=== PATIENT | male | born 1940 | race Caucasian/White ===

== ENCOUNTER → 2018-01-30 | Outpatient (CLI) | payer OTHER, MEDICARE ==
[2015-10-18 11:50] VITALS: BP 169/82
[2018-01-30 16:34] LABS: BASOPHILS # (AUTO) 0.1 X10^3/uL (0.0-0.1); BASOPHILS % (AUTO) 1.2 % (0.2-1.0); EOSINOPHILS # (AUTO) 0.3 x10^3/uL (0.0-0.2); EOSINOPHILS % (AUTO) 4.3 % (0.9-2.9); HEMATOCRIT 45.5 % (42.0-54.0); HEMOGLOBIN 15.8 g/dL (13.5-18.0); LYMPHOCYTES # (AUTO) 1.5 X10^3/uL (1.3-2.9); LYMPHOCYTES % (AUTO) 21.9 % (21.0-51.0); MEAN CORPUSCULAR HEMOGLOBIN 31.4 pg (27.0-34.0); MEAN CORPUSCULAR HGB CONC 34.7 g/dL (33.0-35.0); MEAN CORPUSCULAR VOLUME 90.4 fL (80.0-100.0); MEAN PLATELET VOLUME 9.7 fL (7.4-11.0); MONOCYTES # (AUTO) 0.6 x10^3/uL (0.3-0.8); MONOCYTES % (AUTO) 9.1 % (0.0-13.0); NEUTROPHILS # (AUTO) 4.5 x10^3/uL (2.2-4.8); NEUTROPHILS % (AUTO) 63.5 % (42.0-75.0); PLATELET COUNT 126 X10^3/uL (150.0-450.0); RED BLOOD COUNT 5.03 X10^6/uL (4.7-6.0); RED CELL DISTRIBUTION WIDTH 13.2 % (11.6-16.5); WHITE BLOOD COUNT 7.1 X10^3/uL (3.6-10.0)
[2018-01-30 16:41] LABS: BILIRUBIN,DIRECT 0.3 mg/dL (0-0.2); TOTAL PROTEIN 7.1 g/dL (6.4-8.2)
== END ==
LOC: LAB 16:13
PROVIDERS: ATTEND Internal Medicine Gastroenterology
DX: R94.5 Abnormal results of liver function studies (principal)
CPT/HCPCS: 36415; 80076; 85025

== ENCOUNTER 2024-12-31 16:24 | Observation (INO) ==
--- NOTE | 2024-12-31 18:33 | DR.GENAD ---
HPI Time Seen Time Seen by Provider: 12/31/24 18:21 PCP Primary Care Physician: Татьяна Galo HPI Comment HPI Comment: Patient's states he had an exposure to COVID just over a week ago. Patient was asymptomatic until 2 days ago when he started having some runny nose, congestion and cough. Last night patient started getting a little disoriented in the evening which is abnormal for him but improved during the day today. Earlier today he started feeling a little more weak but no focal symptoms. Complaint/Symptoms Chief Complaint:: states she was exposed to covid ~ 9-10 days ago, with everyone in the choir testing positive. She states she recently had congestion and cough but tested negative but he developed a cough 2 days ago and was weak and dysoriented last PM. She reports he is oriented and normal now, but continues with cough and weakness COVID-19 Coronavirus risk:travel/contact w/high risk person: Yes Has patient experienced Coronavirus symptoms: Yes Coronavirus symptoms experienced: Coughing Source History Provided: Patient and Significant Other Mode of Arrival Mode of Arrival: Wheelchair Timing Onset of Chief Complaint: 12/29/24 PMH PMH Past Medical History: Yes Past Medical History: GERD Past Medical History Comment: pacemaker secondary Wiley, Parkinsons Past Surgical History: Yes Surgical History: Ortho Surgery and Tonsillectomy Past Surgical History Comment: right total knee, left shoulder, cornea implants Family History History of Family Medical Conditions: Yes Family Medical History: Coronary Artery Disease Social History Does patient currently use any type of tobacco product: No Have you used tobacco products in the last 12 months: No Type of Tobacco Use: None Does any household member use tobacco: No Alcohol Use: None Do you use any recreational Drugs:: No Lives With: Spouse Lives Where: Home Travel Risk Coronavirus risk:travel/contact w/high risk person: Yes Has patient experienced Coronavirus symptoms: Yes Coronavirus symptoms experienced: Coughing Infectious screening In the last 2 months have you had wt loss of >10#?: NO Have you had fever, night sweats or hemotysis?: No Have you traveled outside the country in the last 6 months?: No Isolation: Standard ROS Review of Systems Constitutional: See HPI and Weakness; negative Fever Eyes: No Symptoms Reported ENTM: No Symptoms Reported Respiratoy: See HPI and Non-Productive Cough; negative Wheezing Cardiovascular: No Symptoms Reported; negative Chest Pain or Syncope Gastrointestinal/Abdominal: No Symptoms Reported Genitourinary: No Symptoms Reported Neurological: No Symptoms Reported; negative Headache, Numbness, Paresthesia, Seizure, Tingling, Dizziness or Speech Problem Musculoskeletal: No Symptoms Reported Integumentary: No Symptoms Reported Hematologic/Lymphatic: No Symptoms Reported Endocrine: No Symptoms Reported Psychiatric: No Symptoms Reported All Other Systems: Reviewed and Negative PE Vital Signs Vitals: Vital Signs Temperature 98.6 F Pulse Rate 88 Respiratory Rate 22 Blood Pressure 149/87 O2 Sat by Pulse Oximetry 96 General Limitations: No Limitations General Appearance: Alert and In No Apparent Distress Head Head Exam: Normal Inspection Eyes Eye exam: Normal Appearance ENT ENT Exam: Normal Exam External Ear Exam: Normal External Inspection TM/Canal Exam: Bilateral: Normal Nose Exam: Normal Nose Exam Mouth Exam: Normal Inspection Throat Exam: Normal Inspection Neck Neck Exam: Normal Inspection Chest Chest Inspection: Normal Inspection Respiratory Respiratory Exam: Normal Lung Sounds Bilat Respiratory Exam: Bilateral: Clear to Auscultation Cardiovascular Cardiovascular Exam: Regular Rate and Normal Rhythm Abdominal Exam Abdominal Exam: Normal Inspection, Normal Bowel Sounds and Soft Extremities Extremities Exam: Normal Inspection Back Back Exam: Normal Inspection Neurologic Neurological Exam: Alert, Oriented X3, CN II-XII Intact and Reflexes Normal; negative Motor Sensory Deficit Psychiatric Psychiatric Exam: Normal Affect and Normal Mood Skin Skin Exam: Warm, Dry, Intact and Normal Color COURSE Treatment Treatment: Over his time in the ER patient started getting a little more confused as it is later in the evening. Patient's states he had a similar progression yesterday and that she notices when he gets tired he starts having very slight confusion. He is alert and oriented x 3 but does appear more fa tigued on reevaluation. Due to his weakness and confusion patient's annularly herself and alone with him at home she is worried that she will be able to help him adequately. Consultation Called: 20:30 Consultation Comments: Discussed case with Dr. Soni and she is agreeable to admission [facility] Labs Reviewed 12/31/24 18:45 12/31/24 18:45 Laboratory: WBC 8.0 X10^3/uL (3.6-10.0) 12/31/24 18:45 RBC 4.31 X10^6/uL (4.7-6.0) L 12/31/24 18:45 Hgb 13.8 g/dL (13.5-18.0) 12/31/24 18:45 Hct 40.1 % (42.0-54.0) L 12/31/24 18:45 MCV 93.2 fL (80.0-100.0) 12/31/24 18:45 MCH 32.0 pg (27.0-34.0) 12/31/24 18:45 MCHC 34.3 g/dL (33.0-35.0) 12/31/24 18:45 RDW 12.6 % (11.6-16.5) 12/31/24 18:45 Plt Count 114 X10^3/uL (150.0-450.0) L 12/31/24 18:45 Plt Count Comment Decreased (ADEQUATE) 12/31/24 18:45 MPV 9.1 fL (7.4-11.0) 12/31/24 18:45 Neut % (Auto) 80.2 % (42.0-75.0) H 12/31/24 18:45 Lymph % (Auto) 5.1 % (21.0-51.0) L 12/31/24 18:45 [place] % (Auto) 14.0 % (0.0-13.0) H 12/31/24 18:45 Eos % (Auto) 0.1 % (0.9-2.9) L 12/31/24 18:45 Baso % (Auto) 0.6 % (0.2-1.0) 12/31/24 18:45 Neut # (Auto) 6.5 x10^3/uL (2.2-4.8) H 12/31/24 18:45 Lymph # (Auto) 0.4 X10^3/uL (1.3-2.9) L 12/31/24 18:45 [place] # (Auto) 1.1 x10^3/uL (0.3-0.8) H 12/31/24 18:45 Eos # (Auto) 0.0 x10^3/uL (0.0-0.2) 12/31/24 18:45 Baso # (Auto) 0.0 X10^3/uL (0.0-0.1) 12/31/24 18:45 Absolute Nucleated RBC 0.4 /100WBC 12/31/24 18:45 Plt Morphology Comment Normal (NORMAL) 12/31/24 18:45 RBC Morphology Normal (NORMAL) 12/31/24 18:45 Sodium 143 mmol/L (136-145) 12/31/24 18:45 Corrected Sodium TNP 12/31/24 18:45 Potassium 3.8 mmol/L (3.5-5.1) 12/31/24 18:45 Chloride 104 mmol/L (98-107) 12/31/24 18:45 Carbon Dioxide 26.8 mmol/L (21-32) 12/31/24 18:45 BUN 30 mg/dL (7-18) H 12/31/24 18:45 Creatinine 1.01 mg/dL (0.70-1.30) 12/31/24 18:45 Est GFR (MDRD) Af Amer > 60 (>60) 12/31/24 18:45 Est GFR (MDRD) Non-Af > 60 (>60) 12/31/24 18:45 Glucose 97 mg/dL (65-99) 12/31/24 18:45 Calcium 8.5 mg/dL (8.5-10.1) 12/31/24 18:45 Corrected Calcium TNP 12/31/24 18:45 Magnesium 2.0 mg/dL (2.0-2.9) 12/31/24 18:45 Total Bilirubin 1.20 mg/dL (0.2-1.0) H 12/31/24 18:45 AST 28 Units/L (15-37) 12/31/24 18:45 ALT 20 Units/L (12-78) 12/31/24 18:45 Alkaline Phosphatase 48 Units/L (46-116) 12/31/24 18:45 Total Protein 6.7 g/dL (6.4-8.2) 12/31/24 18:45 Albumin 3.8 g/dL (3.4-5.0) 12/31/24 18:45 Globulin 2.9 g/dL (2.5-4.5) 12/31/24 18:45 Albumin/Globulin Ratio 1.3 Ratio (1.1-2.1) 12/31/24 18:45 Specimen Type Clean catch urine 12/31/24 19:15 Urine Color Yellow (YELLOW) 12/31/24 19:15 Urine Appearance Slightly hazy (CLEAR) 12/31/24 19:15 Urine pH 6.0 (5.0 - 8.0) 12/31/24 19:15 Ur Specific [place] 1.025 (1.000-1.030) 12/31/24 19:15 Urine Protein 2+ (NEGATIVE) 12/31/24 19:15 Urine Glucose (UA) Negative (NEGATIVE) 12/31/24 19:15 Urine Ketones 3+ (NEGATIVE) 12/31/24 19:15 Urine Blood 3+ (NEGATIVE) 12/31/24 19:15 Urine Nitrite Negative (NEGATIVE) 12/31/24 19:15 Urine Bilirubin Negative (NEGATIVE) 12/31/24 19:15 Urine Urobilinogen Normal (NORMAL) 12/31/24 19:15 Ur Leukocyte Esterase Negative (NEGATIVE) 12/31/24 19:15 Urine RBC 0-2 /HPF (0-3) 12/31/24 19:15 Urine WBC 0-2 /HPF (0-5) 12/31/24 19:15 Ur Squamous Epith Cells Negative /HPF (NEGATIVE) 12/31/24 19:15 Urine Bacteria Negative /HPF (NEGATIVE) 12/31/24 19:15 Urine Mucus Few /HPF (NEGATIVE) 12/31/24 19:15 Ur Culture Indicated? No/not indicated 12/31/24 19:15 SARS-CoV-2 (PCR) Positive (NEGATIVE) A 12/31/24 16:58 Influenza Type A (PCR) Negative (NEGATIVE) 12/31/24 16:58 Influenza Type B (PCR) Negative (NEGATIVE) 12/31/24 16:58 RSV (PCR) Negative (NEGATIVE) 12/31/24 16:58 Opioid Opioid Risk Tool Age (Wilian box if 16-45): No History of Preadolescent Sexual Abuse: No Total: 0 Total Score Risk Category: Low Risk Copyright: Marcos YOUNG predicting aberrant behaviors Discharge Plan Diagnosis Discharge Problem: COVID, Adult failure to thrive Discharge Plan Patient Disposition: 09 ADMITTED INPATIENT Condition: Stable Prescriptions: No Action polyethylene glycol 3350 [Miralax] 17 gram Powder In Packet 17 g PO PRN PRN fluticasone propionate [Flonase Allergy Relief] 50 mcg/actuation [place],Suspension 1 spray INTRANASAL QDAY Prilosec 10 mg Susp,Delayed Release For Recon 20 mg PO QDAY meloxicam 7.5 mg tablet 7.5 mg PO QDAY levothyroxine 88 mcg tablet 88 mcg PO QDAY hydroxychloroquine 200 mg tablet 200 mg PO BID lovastatin 20 mg tablet 20 mg PO QDAY methylprednisolone 4 mg tablets,dose pack See Rx Instructions .ROUTE .COMPLEX Rx Instructions: per rx instructions cefdinir 300 mg capsule 300 mg PO TID lubiprostone 8 mcg capsule 8 mcg PO BID ascorbic acid (vitamin C) [Vitamin C] 500 mg Tablet,Chewable 1,000 mg PO QDAY melatonin 5 mg Tablet 5 mg PO HS PRN cholecalciferol (vitamin D3) 50 mcg (2,000 unit) Tablet,Chewable 100 mcg PO QDAY Health Concerns: Post Hospitalization: new medications and changes needed to prevent readmission or further decline. Pt educated and given instructions on all concerns. Plan of Treatment: Continue with present treatment and follow up plan. Pt is to keep follow up appointment as instructed and take medications as ordered. Orders to Discharge Patient Discharge Orders: Transfer (Routine); Ordered 12/31/24 Ordered By: Narinder Ha Follow ups/Referrals Follow ups/Referrals: ТАТЬЯНА MERCADO [Primary Care Provider] - 3 days Instructions Stand Alone Forms: Find Help Web Site, Post Hospital Follow Up Care
[2024-12-31 18:53] LABS: EOSINOPHILS % (AUTO) 0.1 % (0.9-2.9); HEMATOCRIT 40.1 % (42.0-54.0); HEMOGLOBIN 13.8 g/dL (13.5-18.0); LYMPHOCYTES # (AUTO) 0.4 X10^3/uL (1.3-2.9); MEAN CORPUSCULAR HGB CONC 34.3 g/dL (33.0-35.0); MONOCYTES # (AUTO) 1.1 x10^3/uL (0.3-0.8); PLATELET COUNT 114 X10^3/uL (150.0-450.0)
[2024-12-31 19:00] LABS: BASOPHILS % (AUTO) 0.6 % (0.2-1.0); LYMPHOCYTES % (AUTO) 5.1 % (21.0-51.0); MEAN CORPUSCULAR VOLUME 93.2 fL (80.0-100.0); MEAN PLATELET VOLUME 9.1 fL (7.4-11.0); NEUTROPHILS # (AUTO) 6.5 x10^3/uL (2.2-4.8); NEUTROPHILS % (AUTO) 80.2 % (42.0-75.0); RED BLOOD COUNT 4.31 X10^6/uL (4.7-6.0); RED CELL DISTRIBUTION WIDTH 12.6 % (11.6-16.5)
[2024-12-31 19:06] LABS: ALANINE AMINOTRANSFERASE 20 Units/L (12-78); ALBUMIN 3.8 g/dL (3.4-5.0); ALKALINE PHOSPHATASE 48 Units/L (46-116); ASPARTATE AMINO TRANSFERASE 28 Units/L (15-37); BLOOD UREA NITROGEN 30 mg/dL (7-18); CALCIUM 8.5 mg/dL (8.5-10.1); CARBON DIOXIDE 26.8 mmol/L (21-32); CHLORIDE 104 mmol/L (98-107); CREATININE 1.01 mg/dL (0.70-1.30); GLUCOSE 97 mg/dL (65-99); POTASSIUM 3.8 mmol/L (3.5-5.1); SODIUM 143 mmol/L (136-145); TOTAL PROTEIN 6.7 g/dL (6.4-8.2); eGFR NON BLACK RACES > 60 (>60)
[2024-12-31 19:27] LABS: PLATELET MORPHOLOGY COMMENT NORMAL (NORMAL)
[2024-12-31 19:35] LABS: BILIRUBIN,URINE NEGATIVE (NEGATIVE); BLOOD/HEMOGLOBIN,URINE 3+ (NEGATIVE); GLUCOSE, URINE NEGATIVE (NEGATIVE); KETONES,URINE 3+ (NEGATIVE); LEUKOCYTE ESTERASE ,URINE NEGATIVE (NEGATIVE); NITRITES,URINE NEGATIVE (NEGATIVE); PROTEIN,URINE 2+ (NEGATIVE); UROBILINOGEN,URINE NORMAL (NORMAL)
[2024-12-31 19:48] LABS: APPEARANCE,URINE SLIGHTLY HAZY (CLEAR); BACTERIA,URINE NEGATIVE /HPF (NEGATIVE); COLOR,URINE YELLOW (YELLOW); RBC,URINE 0-2 /HPF (0-3); SQUAMOUS EPITHELIAL CELL,UR NEGATIVE /HPF (NEGATIVE)
--- NOTE | 2024-12-31 21:50 | RAD ---
EXAM:FRONTAL VIEW CHEST X-RAYHISTORY:CoughCOMPARISON:None. .br.br.br lead wire fractures.No focal consolidation is seen.The heart size is within normal limits.The mediastinum is unremarkable.There is no evidence of pleural effusion or gross pneumothorax.The trachea is midline.IMPRESSION:No focal consolidation is seen.The heart size is normal.THIS IS AN ELECTRONICALLY VERIFIED FINAL REPORT12/31/2024 9:47 PM - Electronically signed by Stephen Piña MD
[2024-12-31] MEDS ORDERED: MELATONIN PO PRN (22:09)
[2024-12-31] MEDS: NS 1,000 ML IV 1,000 ML IV SCH (23:29)
[2024-12-31] MEDS: ASCORBIC ACID INJ MULTI-DOSE VIAL 1,500 MG in NS 100 ML IV 100 ML IV SCH (23:29)
[2024-12-31] MEDS: PEPCID TAB 40 MG PO SCH (23:31)
[2024-12-31] MEDS: ZINC SULFATE PO SCH (23:31)
[2025-01-01 00:25] VITALS: BMI 25.3
[2025-01-01] MEDS: ZOFRAN INJ 4 MG VIAL IVP PRN (00:56)
[2025-01-01] MEDS: ZOFRAN INJ 4 MG VIAL ONE (00:59)
[2025-01-01] MEDS: NIRMATRELVIR PO SCH (02:23)
[2025-01-01] MEDS: RITONAVIR PO SCH (02:23)
[2025-01-01] MEDS: ULTRAM PO PRN (02:49)
[2025-01-01 06:22] LABS: BASOPHILS % (AUTO) 0.3 % (0.2-1.0); HEMATOCRIT 39.7 % (42.0-54.0); HEMOGLOBIN 13.8 g/dL (13.5-18.0); LYMPHOCYTES # (AUTO) 0.6 X10^3/uL (1.3-2.9); LYMPHOCYTES % (AUTO) 10.4 % (21.0-51.0); MEAN CORPUSCULAR HEMOGLOBIN 32.2 pg (27.0-34.0); MEAN CORPUSCULAR HGB CONC 34.7 g/dL (33.0-35.0); MEAN CORPUSCULAR VOLUME 92.8 fL (80.0-100.0); MEAN PLATELET VOLUME 9.3 fL (7.4-11.0); MONOCYTES # (AUTO) 0.8 x10^3/uL (0.3-0.8); MONOCYTES % (AUTO) 15.2 % (0.0-13.0); NEUTROPHILS # (AUTO) 4.1 x10^3/uL (2.2-4.8); NEUTROPHILS % (AUTO) 74.1 % (42.0-75.0); PLATELET COUNT 109 X10^3/uL (150.0-450.0); RED BLOOD COUNT 4.28 X10^6/uL (4.7-6.0); RED CELL DISTRIBUTION WIDTH 12.9 % (11.6-16.5); WHITE BLOOD COUNT 5.5 X10^3/uL (3.6-10.0)
[2025-01-01 06:42] LABS: ALANINE AMINOTRANSFERASE 21 Units/L (12-78); ALBUMIN 3.5 g/dL (3.4-5.0); ALKALINE PHOSPHATASE 43 Units/L (46-116); ASPARTATE AMINO TRANSFERASE 34 Units/L (15-37); BLOOD UREA NITROGEN 28 mg/dL (7-18); CALCIUM 8.4 mg/dL (8.5-10.1); CARBON DIOXIDE 26.9 mmol/L (21-32); CHLORIDE 105 mmol/L (98-107); CREATININE 0.86 mg/dL (0.70-1.30); GLUCOSE 106 mg/dL (65-99); POTASSIUM 3.7 mmol/L (3.5-5.1); SODIUM 142 mmol/L (136-145); TOTAL PROTEIN 6.4 g/dL (6.4-8.2); eGFR NON BLACK RACES > 60 (>60)
[2025-01-01] MEDS ORDERED: CONSULT PHARMACY - POTASSIUM & MAGNESIUM XX SCH (07:00)
--- NOTE | 2025-01-01 08:16 | RAD ---
EXAM:CHEST, 1 VIEWHISTORY:COVIDCOMPARISON:12/31/2024 br.br.br.br unremarkable. A pacing device overlying the left hemithorax is observed . The lungs are clear without focal infiltrate or effusion. The bony thorax is unremarkable.IMPRESSION:No acute cardiopulmonary disease.THIS IS AN ELECTRONICALLY VERIFIED FINAL REPORT01/01/2025 8:13 AM - Electronically signed by Jeff Vazquez MD
[2025-01-01] MEDS: K-DUR TAB 20 MEQ PO SCH (09:22)
[2025-01-01] MEDS: VITAMIN D (1.25MG) PO SCH (09:22)
[2025-01-01] MEDS: LOVENOX INJ 40 MG SYR SC SCH (09:23)
[2025-01-01] MEDS ORDERED: MIRALAX POWDER (1 DOSE 17 G) PO PRN (10:27)
[2025-01-01] MEDS: MOBIC TAB 15 MG PO SCH (10:57)
[2025-01-01] MEDS: SYNTHROID 88 mcg TAB PO SCH (10:58)
[2025-01-01] MEDS: VITAMIN C PO SCH (10:58)
[2025-01-01] MEDS: PLAQUENIL PO SCH (10:58)
[2025-01-01] MEDS: FLONASE NASAL SPRAY ENOSTRIL SCH (10:58)
[2025-01-02 05:08] LABS: PLATELET COUNT 101 X10^3/uL (150.0-450.0); WHITE BLOOD COUNT 4.9 X10^3/uL (3.6-10.0)
[2025-01-02 05:25] LABS: ALANINE AMINOTRANSFERASE 22 Units/L (12-78); ALBUMIN 3.2 g/dL (3.4-5.0); ALKALINE PHOSPHATASE 43 Units/L (46-116); ASPARTATE AMINO TRANSFERASE 37 Units/L (15-37); BASOPHILS % (AUTO) 0.4 % (0.2-1.0); BLOOD UREA NITROGEN 24 mg/dL (7-18); CALCIUM 7.7 mg/dL (8.5-10.1); CHLORIDE 105 mmol/L (98-107); COR CA(FOR HYPOALB) 8.3 mg/dL (8.5-10.1); CREATININE 0.86 mg/dL (0.70-1.30); EOSINOPHILS % (AUTO) 0.1 % (0.9-2.9); GLUCOSE 93 mg/dL (65-99); HEMATOCRIT 38.7 % (42.0-54.0); HEMOGLOBIN 13.2 g/dL (13.5-18.0); LYMPHOCYTES # (AUTO) 0.6 X10^3/uL (1.3-2.9); LYMPHOCYTES % (AUTO) 11.4 % (21.0-51.0); MAGNESIUM 1.9 mg/dL (2.0-2.9); MEAN CORPUSCULAR HEMOGLOBIN 31.8 pg (27.0-34.0); MEAN CORPUSCULAR HGB CONC 34.2 g/dL (33.0-35.0); MEAN PLATELET VOLUME 9.5 fL (7.4-11.0); MONOCYTES # (AUTO) 0.6 x10^3/uL (0.3-0.8); NEUTROPHILS # (AUTO) 3.7 x10^3/uL (2.2-4.8); NEUTROPHILS % (AUTO) 75.1 % (42.0-75.0); POTASSIUM 3.3 mmol/L (3.5-5.1); RED BLOOD COUNT 4.16 X10^6/uL (4.7-6.0); RED CELL DISTRIBUTION WIDTH 12.8 % (11.6-16.5); SODIUM 141 mmol/L (136-145); TOTAL PROTEIN 5.9 g/dL (6.4-8.2); eGFR NON BLACK RACES > 60 (>60)
[2025-01-02 08:20] VITALS: BP 152/78; PULSE 64; RESP 21; TEMP 97.6; O2SAT 94
[2025-01-02] MEDS ORDERED: VITAMIN A PO SCH (09:00)
--- NOTE | 2025-01-02 09:33 | DR.H&P ---
H&P History & Physical for Day of: H&P Date: 01/01/25 Chief Complaint Chief Complaint: generalized weakness History of Present Illness History of Present Illness: Patient is a 84-year-old male with a past medical history of Parkinson's disease, hypothyroidism, hyperlipidemia, GERD, presenting with cough and generalized weakness. His tested positive for COVID few days ago he is also testing positive here. She reports that he did have more weakness and disorientation at home. He does ambulate with a walker at home but was not able to due to weakness before admission. Labs/imaging: WBC 5.5, hemoglobin 13.8, platelets 109, sodium 142, potassium 3.7, creatinine 0.86, glucose 106, UA negative, COVID-positive, RSV/flu negative, chest x-ray shows no acute cardiopulmonary findings. Patient was admitted for COVID-pneumonia, generalized weakness. Will start him on antiviral Paxlovid. Restart home medications. Order PT/OT for further evaluation and treatment. Otherwise continue with current treatment plan. Continue closely monitoring follow-up labs/imaging. Past Medical History Past Medical History: GERD Past Surgical History Surgical History: Ortho Surgery and Tonsillectomy Family History Family Medical History: Coronary Artery Disease Social History Does patient currently use any type of tobacco product: No Have you used tobacco products in the last 12 months: No Type of Tobacco Use: None Does any household member use tobacco: No Alcohol Use: None Drug Use: None Medications Home Medications: Home Medications Medication Instructions Recorded Confirmed Type fluticasone propionate 50 1 spray intranasal QDAY 11/06/18 12/31/24 History mcg/actuation nasal spray,suspension (Flonase Allergy Relief) omeprazole magnesium 10 mg oral 20 mg PO QDAY 11/06/18 12/31/24 History suspension,delayed release (Prilosec) polyethylene glycol 3350 17 gram 17 g PO PRN PRN 11/06/18 12/31/24 History oral powder packet (Miralax) ascorbic acid (vitamin C) 500 mg 1,000 mg PO QDAY 12/31/24 12/31/24 History chewable tablet (Vitamin C) cefdinir 300 mg capsule 300 mg PO TID 12/31/24 12/31/24 History cholecalciferol (vitamin D3) 50 100 mcg PO QDAY 12/31/24 12/31/24 History mcg (2,000 unit) chewable tablet hydroxychloroquine 200 mg tablet 200 mg PO BID 12/31/24 12/31/24 History levothyroxine 88 mcg tablet 88 mcg PO QDAY 12/31/24 12/31/24 History lovastatin 20 mg tablet 20 mg PO QDAY 12/31/24 12/31/24 History lubiprostone 8 mcg capsule 8 mcg PO BID 12/31/24 12/31/24 History melatonin 5 mg tablet 5 mg PO HS PRN 12/31/24 12/31/24 History meloxicam 7.5 mg tablet 7.5 mg PO QDAY 12/31/24 12/31/24 History methylprednisolone 4 mg tablets in See Rx Instructions .Route .COMPLEX 12/31/24 12/31/24 History a dose pack Allergies Allergies Allergy/AdvReac Type Severity Reaction Status Date / Time corn-related products Allergy Uncoded 12/31/24 18:47 Labs 01/02/25 04:38 01/02/25 04:38 Labs: Laboratory WBC 4.9 X10^3/uL (3.6-10.0) 01/02/25 04:38 RBC 4.16 X10^6/uL (4.7-6.0) L 01/02/25 04:38 Hgb 13.2 g/dL (13.5-18.0) L 01/02/25 04:38 Hct 38.7 % (42.0-54.0) L 01/02/25 04:38 MCV 93.0 fL (80.0-100.0) 01/02/25 04:38 MCH 31.8 pg (27.0-34.0) 01/02/25 04:38 MCHC 34.2 g/dL (33.0-35.0) 01/02/25 04:38 RDW 12.8 % (11.6-16.5) 01/02/25 04:38 Plt Count 101 X10^3/uL (150.0-450.0) L 01/02/25 04:38 Plt Count Comment Decreased (ADEQUATE) 12/31/24 18:45 MPV 9.5 fL (7.4-11.0) 01/02/25 04:38 Neut % (Auto) 75.1 % (42.0-75.0) H 01/02/25 04:38 Lymph % (Auto) 11.4 % (21.0-51.0) L 01/02/25 04:38 [place] % (Auto) 13.0 % (0.0-13.0) 01/02/25 04:38 Eos % (Auto) 0.1 % (0.9-2.9) L 01/02/25 04:38 Baso % (Auto) 0.4 % (0.2-1.0) 01/02/25 04:38 Neut # (Auto) 3.7 x10^3/uL (2.2-4.8) 01/02/25 04:38 Lymph # (Auto) 0.6 X10^3/uL (1.3-2.9) L 01/02/25 04:38 [place] # (Auto) 0.6 x10^3/uL (0.3-0.8) 01/02/25 04:38 Eos # (Auto) 0.0 x10^3/uL (0.0-0.2) 01/02/25 04:38 Baso # (Auto) 0.0 X10^3/uL (0.0-0.1) 01/02/25 04:38 Absolute Nucleated RBC 0.2 /100WBC 01/02/25 04:38 Plt Morphology Comment Normal (NORMAL) 12/31/24 18:45 RBC Morphology Normal (NORMAL) 12/31/24 18:45 Sodium 141 mmol/L (136-145) 01/02/25 04:38 Corrected Sodium TNP 01/02/25 04:38 Potassium 3.3 mmol/L (3.5-5.1) L 01/02/25 04:38 Chloride 105 mmol/L (98-107) 01/02/25 04:38 Carbon Dioxide 28.0 mmol/L (21-32) 01/02/25 04:38 BUN 24 mg/dL (7-18) H 01/02/25 04:38 Creatinine 0.86 mg/dL (0.70-1.30) 01/02/25 04:38 Est GFR (MDRD) Af Amer > 60 (>60) 01/02/25 04:38 Est GFR (MDRD) Non-Af > 60 (>60) 01/02/25 04:38 Glucose 93 mg/dL (65-99) 01/02/25 04:38 Calcium 7.7 mg/dL (8.5-10.1) L 01/02/25 04:38 Corrected Calcium 8.3 mg/dL (8.5-10.1) L 01/02/25 04:38 Magnesium 1.9 mg/dL (2.0-2.9) L 01/02/25 04:38 Total Bilirubin 0.80 mg/dL (0.2-1.0) 01/02/25 04:38 AST 37 Units/L (15-37) 01/02/25 04:38 ALT 22 Units/L (12-78) 01/02/25 04:38 Alkaline Phosphatase 43 Units/L (46-116) L 01/02/25 04:38 Total Protein 5.9 g/dL (6.4-8.2) L 01/02/25 04:38 Albumin 3.2 g/dL (3.4-5.0) L 01/02/25 04:38 Globulin 2.7 g/dL (2.5-4.5) 01/02/25 04:38 Albumin/Globulin Ratio 1.2 Ratio (1.1-2.1) 01/02/25 04:38 Specimen Type Clean catch urine 12/31/24 19:15 Urine Color Yellow (YELLOW) 12/31/24 19:15 Urine Appearance Slightly hazy (CLEAR) 12/31/24 19:15 Urine pH 6.0 (5.0 - 8.0) 12/31/24 19:15 Ur Specific [place] 1.025 (1.000-1.030) 12/31/24 19:15 Urine Protein 2+ (NEGATIVE) 12/31/24 19:15 Urine Glucose (UA) Negative (NEGATIVE) 12/31/24 19:15 Urine Ketones 3+ (NEGATIVE) 12/31/24 19:15 Urine Blood 3+ (NEGATIVE) 12/31/24 19:15 Urine Nitrite Negative (NEGATIVE) 12/31/24 19:15 Urine Bilirubin Negative (NEGATIVE) 12/31/24 19:15 Urine Urobilinogen Normal (NORMAL) 12/31/24 19:15 Ur Leukocyte Esterase Negative (NEGATIVE) 12/31/24 19:15 Urine RBC 0-2 /HPF (0-3) 12/31/24 19:15 Urine WBC 0-2 /HPF (0-5) 12/31/24 19:15 Ur Squamous Epith Cells Negative /HPF (NEGATIVE) 12/31/24 19:15 Urine Bacteria Negative /HPF (NEGATIVE) 12/31/24 19:15 Urine Mucus Few /HPF (NEGATIVE) 12/31/24 19:15 Ur Culture Indicated? No/not indicated 12/31/24 19:15 SARS-CoV-2 (PCR) Positive (NEGATIVE) A 12/31/24 16:58 Influenza Type A (PCR) Negative (NEGATIVE) 12/31/24 16:58 Influenza Type B (PCR) Negative (NEGATIVE) 12/31/24 16:58 RSV (PCR) Negative (NEGATIVE) 12/31/24 16:58 Review of Systems Constitutional: Weakness Eyes: No Symptoms Reported ENT: No Symptoms Reported Respiratory: Cough and Shortness of Breath Cardiovascular: No Symptoms Reported Gastrointestinal: No Symptoms Reported Genitourinary: No Symptoms Reported Musculoskeletal: No Symptoms Reported Skin: No Symptoms Reported Neurological: Other (tremors) Physical Exam Vital Signs: Vital Signs Temperature 97.6 F Temperature 98.3 F Pulse Rate [Left Brachial] 64 Pulse Rate [Left Brachial] 62 Respiratory Rate 21 Respiratory Rate 20 Blood Pressure [Left Arm] 152/78 Blood Pressure [Left Arm] 142/81 O2 Sat by Pulse Oximetry 94 O2 Sat by Pulse Oximetry 92 Oriented: Normal Eyes: Normal Ear: Normal Nose: Normal Throat: Normal Respiratory: Diminished Throughout Cardiovascular: Normal : Normal Auscultation: Bowel Sounds: Normal Palpation: Normal Tenderness: Normal Skin: Normal Musculoskeletal: Motor Deficit (tremors) Psychiatric: Normal Mood Description: Calm and Appropriate Affect: Normal Speech Pattern: Clear and Appropriate Assessment/Plan (1) Pneumonia due to COVID-19 virus: Status: Acute (2) Generalized weakness: Status: Acute Review H&P Reviewed: Yes Patient was examined?: Yes
[2025-01-02] MEDS: PriLOSEC PO SCH (10:14)
[2025-01-02] MEDS: VITAMIN D3 125 mcg (5,000 UNITS) PO SCH (10:14)
[2025-01-02] MEDS ORDERED: K-DUR TAB 20 MEQ PO SCH (11:00)
[2025-01-02] MEDS ORDERED: COLACE CAP 100 MG PO SCH (21:00)
--- NOTE | 2025-01-04 10:25 | W.DIS.FURT ---
Summary of Discharge Discharge Summary of Date Date of Exam: 01/02/25 Admission Date Date of Admission: 12/31/24 Admission Diagnosis Patient Problems (Updated 01/02/25 @ 09:31 by Tyree Mitchell MD) COVID (Acute) U07.1 Adult failure to thrive (Acute) R62.7 Hospital Course: Patient is a 84-year-old male with a past medical history of Parkinson's disease, hypothyroidism, hyperlipidemia, GERD, presenting with cough and generalized weakness. His tested positive for COVID few days ago . She reports that he did have more weakness and disorientation at home. He does ambulate with a walker at home but was not able to due to weakness before admission. ER workup showed COVID-positive, RSV/flu negative. Chest x-ray did not show any acute changes. Patient was admitted for COVID infection and we akness. He was started on Paxlovid. His labs were monitored daily and electrolytes replaced as needed. He did not require any oxygen. He was able to ambulate with a walker. He was stable to be discharged home. He will follow-up with PCP as scheduled. Vital Signs: Vital Signs (72 hours) 12/31/24 16:24 12/31/24 20:50 01/01/25 02:49 Temperature 98.6 F Pulse Rate 88 Pulse Rate [Left Brachial] 87 Respiratory Rate 22 20 16 Blood Pressure 149/87 Blood Pressure [Left Arm] 147/86 O2 Sat by Pulse Oximetry 96 96 Oxygen Delivery Method Room Air Room Air FIO2% 12/31/24 21:15 01/01/25 00:00 01/01/25 00:05 Temperature 98.7 F 98.5 F Pulse Rate Pulse Rate [Left Brachial] 71 66 Respiratory Rate 16 20 Blood Pressure Blood Pressure [Left Arm] 164/71 154/69 O2 Sat by Pulse Oximetry 95 96 Oxygen Delivery Method Room Air Room Air Room Air FIO2% 12/31/24 21:00 01/01/25 04:00 01/01/25 03:49 Temperature 97.8 F Pulse Rate Pulse Rate [Left Brachial] 61 Respiratory Rate 16 16 Blood Pressure Blood Pressure [Left Arm] 141/70 O2 Sat by Pulse Oximetry 92 L Oxygen Delivery Method Room Air Room Air FIO2% 21 01/01/25 08:28 01/01/25 08:28 01/01/25 07:00 Temperature Pulse Rate 70 Pulse Rate [Left Brachial] Respiratory Rate Blood Pressure Blood Pressure [Left Arm] O2 Sat by Pulse Oximetry 94 L Oxygen Delivery Method Room Air Room Air FIO2% 21 21 01/01/25 08:00 01/01/25 12:00 01/01/25 16:00 Temperature 98.4 F 98.0 F 97.9 F Pulse Rate Pulse Rate [Left Brachial] 65 62 60 Respiratory Rate 20 21 22 Blood Pressure Blood Pressure [Left Arm] 146/86 133/72 146/67 O2 Sat by Pulse Oximetry 98 94 L 95 Oxygen Delivery Method Room Air Room Air Room Air FIO2% 01/01/25 20:07 01/01/25 20:00 01/01/25 19:00 Temperature 98.2 F Pulse Rate Pulse Rate [Left Brachial] 62 Respiratory Rate 24 Blood Pressure Blood Pressure [Left Arm] 142/79 O2 Sat by Pulse Oximetry 96 Oxygen Delivery Method Room Air Room Air Room Air FIO2% 21 01/01/25 23:37 01/02/25 03:57 01/02/25 07:00 Temperature 98.4 F 98.3 F Pulse Rate Pulse Rate [Left Brachial] 109 H 62 Respiratory Rate 18 20 Blood Pressure Blood Pressure [Left Arm] 160/83 142/81 O2 Sat by Pulse Oximetry 94 L 92 L Oxygen Delivery Method Room Air Room Air Room Air FIO2% 01/02/25 08:00 Temperature 97.6 F Pulse Rate Pulse Rate [Left Brachial] 64 Respiratory Rate 21 Blood Pressure Blood Pressure [Left Arm] 152/78 O2 Sat by Pulse Oximetry 94 L Oxygen Delivery Method Room Air FIO2% Labs: Laboratory Last Values WBC 4.9 X10^3/uL (3.6-10.0) 01/02/25 04:38 RBC 4.16 X10^6/uL (4.7-6.0) L 01/02/25 04:38 Hgb 13.2 g/dL (13.5-18.0) L 01/02/25 04:38 Hct 38.7 % (42.0-54.0) L 01/02/25 04:38 MCV 93.0 fL (80.0-100.0) 01/02/25 04:38 MCH 31.8 pg (27.0-34.0) 01/02/25 04:38 MCHC 34.2 g/dL (33.0-35.0) 01/02/25 04:38 RDW 12.8 % (11.6-16.5) 01/02/25 04:38 Plt Count 101 X10^3/uL (150.0-450.0) L 01/02/25 04:38 Plt Count Comment Decreased (ADEQUATE) 12/31/24 18:45 MPV 9.5 fL (7.4-11.0) 01/02/25 04:38 Neut % (Auto) 75.1 % (42.0-75.0) H 01/02/25 04:38 Lymph % (Auto) 11.4 % (21.0-51.0) L 01/02/25 04:38 [place] % (Auto) 13.0 % (0.0-13.0) 01/02/25 04:38 Eos % (Auto) 0.1 % (0.9-2.9) L 01/02/25 04:38 Baso % (Auto) 0.4 % (0.2-1.0) 01/02/25 04:38 Neut # (Auto) 3.7 x10^3/uL (2.2-4.8) 01/02/25 04:38 Lymph # (Auto) 0.6 X10^3/uL (1.3-2.9) L 01/02/25 04:38 [place] # (Auto) 0.6 x10^3/uL (0.3-0.8) 01/02/25 04:38 Eos # (Auto) 0.0 x10^3/uL (0.0-0.2) 01/02/25 04:38 Baso # (Auto) 0.0 X10^3/uL (0.0-0.1) 01/02/25 04:38 Absolute Nucleated RBC 0.2 /100WBC 01/02/25 04:38 Plt Morphology Comment Normal (NORMAL) 12/31/24 18:45 RBC Morphology Normal (NORMAL) 12/31/24 18:45 Sodium 141 mmol/L (136-145) 01/02/25 04:38 Corrected Sodium TNP 01/02/25 04:38 Potassium 3.3 mmol/L (3.5-5.1) L 01/02/25 04:38 Chloride 105 mmol/L (98-107) 01/02/25 04:38 Carbon Dioxide 28.0 mmol/L (21-32) 01/02/25 04:38 BUN 24 mg/dL (7-18) H 01/02/25 04:38 Creatinine 0.86 mg/dL (0.70-1.30) 01/02/25 04:38 Est GFR (MDRD) Af Amer > 60 (>60) 01/02/25 04:38 Est GFR (MDRD) Non-Af > 60 (>60) 01/02/25 04:38 Glucose 93 mg/dL (65-99) 01/02/25 04:38 Calcium 7.7 mg/dL (8.5-10.1) L 01/02/25 04:38 Corrected Calcium 8.3 mg/dL (8.5-10.1) L 01/02/25 04:38 Magnesium 1.9 mg/dL (2.0-2.9) L 01/02/25 04:38 Total Bilirubin 0.80 mg/dL (0.2-1.0) 01/02/25 04:38 AST 37 Units/L (15-37) 01/02/25 04:38 ALT 22 Units/L (12-78) 01/02/25 04:38 Alkaline Phosphatase 43 Units/L (46-116) L 01/02/25 04:38 Total Protein 5.9 g/dL (6.4-8.2) L 01/02/25 04:38 Albumin 3.2 g/dL (3.4-5.0) L 01/02/25 04:38 Globulin 2.7 g/dL (2.5-4.5) 01/02/25 04:38 Albumin/Globulin Ratio 1.2 Ratio (1.1-2.1) 01/02/25 04:38 Specimen Type Clean catch urine 12/31/24 19:15 Urine Color Yellow (YELLOW) 12/31/24 19:15 Urine Appearance Slightly hazy (CLEAR) 12/31/24 19:15 Urine pH 6.0 (5.0 - 8.0) 12/31/24 19:15 Ur Specific [place] 1.025 (1.000-1.030) 12/31/24 19:15 Urine Protein 2+ (NEGATIVE) 12/31/24 19:15 Urine Glucose (UA) Negative (NEGATIVE) 12/31/24 19:15 Urine Ketones 3+ (NEGATIVE) 12/31/24 19:15 Urine Blood 3+ (NEGATIVE) 12/31/24 19:15 Urine Nitrite Negative (NEGATIVE) 12/31/24 19:15 Urine Bilirubin Negative (NEGATIVE) 12/31/24 19:15 Urine Urobilinogen Normal (NORMAL) 12/31/24 19:15 Ur Leukocyte Esterase Negative (NEGATIVE) 12/31/24 19:15 Urine RBC 0-2 /HPF (0-3) 12/31/24 19:15 Urine WBC 0-2 /HPF (0-5) 12/31/24 19:15 Ur Squamous Epith Cells Negative /HPF (NEGATIVE) 12/31/24 19:15 Urine Bacteria Negative /HPF (NEGATIVE) 12/31/24 19:15 Urine Mucus Few /HPF (NEGATIVE) 12/31/24 19:15 Ur Culture Indicated? No/not indicated 12/31/24 19:15 SARS-CoV-2 (PCR) Positive (NEGATIVE) A 12/31/24 16:58 Influenza Type A (PCR) Negative (NEGATIVE) 12/31/24 16:58 Influenza Type B (PCR) Negative (NEGATIVE) 12/31/24 16:58 RSV (PCR) Negative (NEGATIVE) 12/31/24 16:58 Reason For Visit: COVID, FAILURE TO THRIVE Discharge Diagnosis All Active Problems (Updated 01/02/25 @ 09:31 by Tyree Mitchell MD) Pneumonia due to COVID-19 virus (Acute) Generalized weakness (Acute) COVID (Acute) Adult failure to thrive (Acute) Plan of Treatment: Continue with present treatment and follow up plan. Pt is to keep follow up appointment as instructed and take medications as ordered. Discharge Medications Discharge Medications: corn-related products Allergy (Uncoded 12/31/24 18:47) CONTINUE taking the following medications ascorbic acid (vitamin C) 500 mg chewable tablet (Vitamin C) 1,000 mg PO QDAY 12/31/24 [History] cholecalciferol (vitamin D3) 50 mcg (2,000 unit) chewable tablet 100 mcg PO QDAY 12/31/24 [History] hydroxychloroquine 200 mg tablet 200 mg PO BID 12/31/24 [History] levothyroxine 88 mcg tablet 88 mcg PO QDAY 12/31/24 [History] lovastatin 20 mg tablet 20 mg PO QDAY 12/31/24 [History] lubiprostone 8 mcg capsule 8 mcg PO BID 12/31/24 [History] melatonin 5 mg tablet 5 mg PO HS PRN 12/31/24 [History] meloxicam 7.5 mg tablet 7.5 mg PO QDAY 12/31/24 [History] New Prescriptions nirmatrelvir 300 mg (150 mg x2)-ritonavir 100 mg tablet,dose pack (Paxlovid) 3 ea PO BID #30 ea 01/02/25 [Rx] Discharge Disposition Discharge Disposition: home Discharge Condition: stable Discharge Plan Discharge Plan Hospital Course: Patient is a 84-year-old male with a past medical history of Parkinson's disease, hypothyroidism, hyperlipidemia, GERD, presenting with cough and generalized weakness. His tested positive for COVID few days ago . She reports that he did have more weakness and disorientation at home. He does ambulate with a walker at home but was not able to due to weakness before admission. ER workup showed COVID-positive, RSV/flu negative. Chest x-ray did not show any acute changes. Patient was admitted for COVID infection and weak ness. He was started on Paxlovid. His labs were monitored daily and electrolytes replaced as needed. He did not require any oxygen. He was able to ambulate with a walker. He was stable to be discharged home. He will follow- up with PCP as scheduled. Patient Disposition: 01 HOME, SELF-CARE Condition: Stable Health Concerns: Post Hospitalization: new medications and changes needed to prevent readmission or further decline. Pt educated and given instructions on all concerns. Care Plan Goals: Problem: Pain/Alteration in Comfort Goal: Improve/ Resolve Pain; Achieve Pain Tolerance Instructions: Take pain medications as prescribed. Contact your primary care provider if your pain is unrelieved or worsens. Follow up with primary care provider as directed. Plan of Treatment: Continue with present treatment and follow up plan. Pt is to keep follow up appointment as instructed and take medications as ordered. Prescription drug monitoring program results: PDMP reviewed and no concerns identified Prescriptions: New Paxlovid 300 mg (150 mg x 2)-100 mg Tablets,Dose Pack 3 ea PO BID Qty: 30 0RF Rx Instructions: as per packet directions Continued polyethylene glycol 3350 [Miralax] 17 gram Powder In Packet 17 g PO PRN PRN fluticasone propionate [Flonase Allergy Relief] 50 mcg/actuation [place],Suspension 1 spray INTRANASAL QDAY Prilosec 10 mg Susp,Delayed Release For Recon 20 mg PO QDAY meloxicam 7.5 mg tablet 7.5 mg PO QDAY levothyroxine 88 mcg tablet 88 mcg PO QDAY hydroxychloroquine 200 mg tablet 200 mg PO BID lovastatin 20 mg tablet 20 mg PO QDAY lubiprostone 8 mcg capsule 8 mcg PO BID ascorbic acid (vitamin C) [Vitamin C] 500 mg Tablet,Chewable 1,000 mg PO QDAY melatonin 5 mg Tablet 5 mg PO HS PRN cholecalciferol (vitamin D3) 50 mcg (2,000 unit) Tablet,Chewable 100 mcg PO QDAY Discontinued methylprednisolone 4 mg tablets,dose pack See Rx Instructions .ROUTE .COMPLEX Rx Instructions: per rx instructions cefdinir 300 mg capsule 300 mg PO TID Orders to Discharge Patient Discharge Orders: Discharge (Routine); Ordered 01/02/25 Ordered By: Alina Ahumada Follow ups/Referrals Follow ups/Referrals: CARON MERCADO [Primary Care Provider] - 3 days Instructions Instructions: COVID-19: What to Know, Weakness: What to Know, Vorj-[id number], Nirmatrelvir; Ritonavir Tablets Stand Alone Forms: Excuse From Work or School, Find Help Web Site, Post Hospital Follow Up Care
== END 2025-01-02 10:50 | disposition home or self-care (01) ==
LOC: MED/SURG 16:24 → ER 16:24 → MED/SURG 21:15
PROVIDERS: ADMIT Internal Medicine; ATTEND Internal Medicine